=== PATIENT | male | born 1985 | race Hispanic/Latino ===

== ENCOUNTER 2017-10-20 23:47 | Emergency (ER) | payer MEDICAID ==
[2017-10-20 23:57] VITALS: BP 109/74; PULSE 77; RESP 18; TEMP 98.4; O2SAT 97
[2017-10-21] MEDS ORDERED: Sodium Chloride 0.9% 1,000 ML IV STA (00:17)
[2017-10-21] MEDS ORDERED: DiphenhydrAMINE 50 mg/ml Inj IVP STA (00:17)
[2017-10-21] MEDS ORDERED: DiphenhydrAMINE 50 mg/ml Inj ONE (00:36)
--- NOTE | 2017-10-21 01:54 | ED PDOC ---
HPI: Psych/Substance Abuse Time Seen by Provider: 10/21/17 00:10 Chief Complaint (Nursing): Alcohol Ingestion Chief Complaint (Provider): Alcohol Ingestion History Per: EMS History/Exam Limitations: intoxication Onset/Duration Of Symptoms: Hrs (prior to arrival) Current Symptoms Are (Timing): Still Present Modifying Factor(s): Alcohol Additional Complaint(s): Morro Mayo is a 32 year old male with unknown past medical history, who was brought to the ER by EMS for alcohol intoxication, prior to arrival. Patient was severely intoxicated in the back of a taxi, and the oil transport driver called EMS. History and review of systems were unobtainable due to patient's intoxicated state. While in ER pt started to have vomiting PMD: none provided Past Medical History Reviewed: Historical Data, Nursing Documentation, Vital Signs, Unable To Obtain (patient is intoxicated) Vital Signs: Last Vital Signs Temp 98.4 F 10/20/17 23:54 Pulse 77 10/20/17 23:54 Resp 18 10/20/17 23:54 BP 109/74 10/20/17 23:54 Pulse Ox 97 10/20/17 23:54 - Medical History Other PMH: Unknown - Surgical History Other surgeries: Unknown - Family History Family History: States: Unknown Family Hx - Allergies Allergies/Adverse Reactions: Allergies Allergy/AdvReac Type Severity Reaction Status Date / Time Unobtainable Allergy Verified 10/20/17 23:58 Review of Systems Review Of Systems: ROS cannot be obtained secondary to pt's inabilty to answer questions. (patoent is intoxicated) Physical Exam - Reviewed Nursing Documentation Reviewed: Yes Vital Signs Reviewed: Yes - Physical Exam Appears: Negative for: Well (intoxicated, lethargic) Head Exam: Positive for: ATRAUMATIC, NORMOCEPHALIC Skin: Positive for: Warm, Dry, Pallor Eye Exam: Positive for: EOMI, PERRL, Conjunctival injection ENT: Positive for: Pharynx Is (clear) Neck: Positive for: Painless ROM, Supple Cardiovascular/Chest: Positive for: Regular Rate, Rhythm. Negative for: Murmur Respiratory: Positive for: Normal Breath Sounds. Negative for: Accessory Muscle Use, Respiratory Distress Gastrointestinal/Abdominal: Positive for: Soft. Negative for: Tenderness, Mass , Distended, Guarding Back: Positive for: Normal Inspection. Negative for: Decreased ROM Extremity: Positive for: Normal ROM. Negative for: Deformity Lymphatic: Negative for: Adenopathy Neurologic/Psych: Positive for: Other (slurred speech). Negative for: Alert, Oriented, Motor/Sensory Deficits - ECG O2 Sat by Pulse Oximetry: 97 (RA) Pulse Ox Interpretation: Normal Medical Decision Making Medical Decision Making: Time: 00:17 Impression: alcohol intoxication, vomiting Plan: --Alcohol Serum --Benadryl 25 mg IVP --Dextrose IV 1,000 mls/hr --IV Fluids --Reglan 10 mg IV --Glucose, Blood, POC Patient was retching and vomiting in the ER, upon arrival. Labs demonstrate elevated BAL Reeval at 2 and 4 hours in ER, pt sleeping comfortably. 6am Pt awake, oriented, ambulating without difficulty. No signs of withdrawal. Stable for DC. Scribe Attestation: Documented by Tiesha Restrepo acting as a scribe for Ana Guzman MD. Scribe Attestation: All medical record entries made by the Scribe were at my direction and personally dictated by me. I have reviewed the chart and agree that the record accurately reflects my personal performance of the history, physical exam, medical decision making, and the department course for this patient. I have also personally directed, reviewed, and agree with the discharge instructions and disposition. Disposition - Clinical Impression Clinical Impression: Alcohol intoxication - Disposition Disposition: Routine/Home Disposition Time: 06:00 Condition: IMPROVED Additional Instructions: DRINK IN MODERATION OR DON'T DRINK AT ALL Instructions: Alcohol Use - When Is Drinking a Problem? Forms: [employer] (Romansh)
== END 2017-10-21 07:06 | disposition home or self-care (01) ==
LOC: H.ER 23:47
DX: F10.10 Alcohol abuse, uncomplicated (principal)
CPT/HCPCS: 80320; 96361; 96374; 96375; 99281; J1200; J2765; J7040

== ENCOUNTER 2017-11-01 04:17 | Inpatient (IN) | payer MEDICAID, OTHER ==
--- NOTE | 2017-11-01 05:06 | ED PDOC ---
HPI: Psych/Substance Abuse Chief Complaint (Provider): crisis eval History Per: Patient History/Exam Limitations: no limitations Additional Complaint(s): 32 y/o male presents for crisis eval. Patient states he has " a lot of things" going on lately that have been contributing factors. Patient appears intoxicated, admits to drinking "a few beers" tonight. Requesting sunchips. Denies suicidal/homicidal ideations, drug use, acute physical complaints. Compliant with psych meds. <Stephanie Lind - Last Filed: 11/01/17 05:59> <Julio Cesar Jorgensen - Last Filed: 11/01/17 07:50> Time Seen by Provider: 11/01/17 05:00 Chief Complaint (Nursing): Psychiatric Evaluation Past Medical History Reviewed: Historical Data, Nursing Documentation, Vital Signs Vital Signs: Last Vital Signs Temp 98.6 F 11/01/17 04:51 Pulse 73 11/01/17 04:51 Resp 16 11/01/17 04:51 BP Pulse Ox 97 11/01/17 04:51 - Medical History PMH: Anxiety, Bipolar Disorder - Surgical History Surgical History: No Surg Hx - Family History Family History: States: Unknown Family Hx <Stephanie Lind - Last Filed: 11/01/17 05:59> Vital Signs: Last Vital Signs Temp 98.6 F 11/01/17 04:51 Pulse 73 11/01/17 04:51 Resp 16 11/01/17 04:51 BP 121/63 11/01/17 05:34 Pulse Ox 97 11/01/17 06:00 <Julio Cesar Jorgensen - Last Filed: 11/01/17 07:50> - Allergies Allergies/Adverse Reactions: Allergies Allergy/AdvReac Type Severity Reaction Status Date / Time Unobtainable Allergy Verified 10/20/17 23:58 Review of Systems ROS Statement: Except As Marked, All Systems Reviewed And Found Negative Psych: Positive for: Depression <Stephanie Lind - Last Filed: 11/01/17 05:59> Physical Exam - Reviewed Nursing Documentation Reviewed: Yes Vital Signs Reviewed: Yes - Physical Exam Appears: Positive for: Well, Non-toxic, No Acute Distress Head Exam: Positive for: ATRAUMATIC, NORMAL INSPECTION, NORMOCEPHALIC Skin: Positive for: Normal Color Eye Exam: Positive for: Normal appearance ENT: Positive for: Normal ENT Inspection Cardiovascular/Chest: Positive for: Regular Rate, Rhythm Respiratory: Positive for: Normal Breath Sounds Gastrointestinal/Abdominal: Positive for: Normal Exam Back: Positive for: Normal Inspection Extremity: Positive for: Normal ROM Neurologic/Psych: Positive for: Alert, Oriented <Stephanie Lind - Last Filed: 11/01/17 05:59> - ECG O2 Sat by Pulse Oximetry: 97 <Stephanie Lind - Last Filed: 11/01/17 05:59> - Laboratory Results Result Diagrams: 11/01/17 05:31 11/01/17 05:31 <Julio Cesar Jorgensen - Last Filed: 11/01/17 07:50> Medical Decision Making Medical Decision Making: Patient to be signed out to Dr. Alcazar pending crisis evaluation. <Julio Cesar Jorgensen - Last Filed: 11/01/17 07:50> Disposition - Disposition Disposition Time: 06:00 <Stephanie Lind - Last Filed: 11/01/17 05:59> - Patient ED Disposition Is Patient to be Admitted: Transfer of Care - Disposition Patient Signed Over To: Winston Alcazar <Julio Cesar Jorgensen - Last Filed: 11/01/17 07:50> - Clinical Impression Clinical Impression: Depression - Disposition Condition: STABLE
[2017-11-01 06:05] LABS: BASO # 0.1 K/uL (0.0-0.2); BASO % 1.1 % (0.0-2.0); EOS # 0.2 K/uL (0.0-0.7); EOS % 3.6 % (0.0-4.0); HEMOGLOBIN 13.6 g/dL (12.0-18.0); LYMPH # 1.6 K/uL (1.0-4.3); LYMPH % 31.9 % (20.0-40.0); MEAN CORPUSCULAR HEMOGLOBIN 32.4 pg (27.0-31.0); MEAN CORPUSCULAR HGB CONC 34.1 g/dL (33.0-37.0); MEAN PLATELET VOLUME 7.5 fl (7.2-11.7); MONO # 0.6 K/uL (0.0-0.8); MONO % 12.7 % (0.0-10.0); NEUT # 2.5 K/uL (1.8-7.0); NEUT % 50.7 % (50.0-75.0); NRBC % 0.1 % (0.0-0.0); RBC 4.2 Mil/uL (4.40-5.90); RED CELL DISTRIBUTION WIDTH 13.2 % (11.5-14.5); WHITE BLOOD COUNT 4.9 K/uL (4.8-10.8)
[2017-11-01 06:06] LABS: ALB/GLOB RATIO 1.4 (1.0-2.1); ALBUMIN 4.1 g/dL (3.5-5.0); ALT/SGPT 51 U/L (21-72); AST/SGOT 45 U/L (17-59); BLOOD UREA NITROGEN 21 mg/dl (9-20); CALCIUM 9.4 mg/dL (8.4-10.2); GFR AFRICAN-AMERICAN > 60; GFR NON-AFRICAN AMERICAN > 60
[2017-11-01 07:50] LABS: SQUAMOUS EPITHIAL < 1 /hpf (0-5); URINE BILIRUBIN NEGATIVE (NEGATIVE); URINE BLOOD NEGATIVE (NEGATIVE); URINE CLARITY CLEAR (Clear); URINE COLOR YELLOW (YELLOW); URINE GLUCOSE (UA) NEG (Normal); URINE LEUKOCYTE ESTERASE NEG Leu/uL (Negative); URINE PROTEIN NEGATIVE (NEGATIVE); URINE UROBILINOGEN 0.2-1.0 mg/dL (0.2-1.0)
[2017-11-01 08:02] VITALS: O2SAT 98
[2017-11-01 08:02] LABS: BARBITURATES, UR NEGATIVE (NEGATIVE); BENZODIAZEPINES, UR NEGATIVE (NEGATIVE); OPIATES, UR NEGATIVE (NEGATIVE); PHENCYCLIDINE, UR NEGATIVE (NEGATIVE)
--- NOTE | 2017-11-01 08:04 | ED PDOC ---
- Laboratory Results Result Diagrams: 11/02/17 07:41 11/02/17 07:41 - ECG O2 Sat by Pulse Oximetry: 98 Medical Decision Making Medical Decision Making: Patient signed out to me by Dr. Jorgensen pending crisis evaluation. 8:30 Patient being admitted for bipolar disorder to Dr. Burroughs. Scribe Attestation: Documented by Yaneth Barron acting as a scribe Winston Alcazar MD. Scribtanja Attestation: All medical record entries made by the Scribe were at my direction and personally dictated by me. I have reviewed the chart and agree that the record accurately reflects my personal performance of the history, physical exam, medical decision making, and the department course for this patient. I have also personally directed, reviewed, and agree with the discharge instructions and disposition. Disposition - Clinical Impression Clinical Impression: Depression - POA Present On Arrival: None - Disposition Disposition: Admitted as In-Patient Disposition Time: 08:00 Condition: STABLE
[2017-11-01] MEDS ORDERED: DiphenhydrAMINE 50 mg/ml Inj IM PRN (13:17)
[2017-11-01] MEDS ORDERED: Magnesium Hydroxide Susp 30 ml UD PO PRN (13:17)
[2017-11-01] MEDS ORDERED: Alum-Mag Hydrox-Simethicone Susp (30 mL) PO PRN (13:17)
--- NOTE | 2017-11-01 15:24 | PCM.PSYCH ---
Initial Psychiatric Evaluation - Initial Psychiatric Evaluation Type of Admission: Voluntary Legal Status: Capacity Chief Complaint (in patient's own words): I broke up with my girl friend and it hurts Patient's Reaction to Hospitalization: pt requested help History of Present Illness and Precipitating Events: pt is 32 ys old male with previous diagnosis of bipolar disorder, at least four previous inpatient hospitalizations for manic episodes. pt recently broke up with his girl friend became increasingly depressed, pt was non compliant with his medications, started to have poor sleep only two hours a day, pt also started using alcohol and cannabis, pt became increasingly manic for past few days since last monday, left the house and started wandering on the streets in [facility] pt started experiencing suicidal ideations and presented to ER seeking help on the unit pt presenting with severe anxiety, depressed mood with passive suicidal ideations, no active plan or intent on the unit, increased energy and irritability, pt denied homicidal ideations, denied command hallucinations Current Medications: Active Medications Generic Name Dose Route Start Last Admin Trade Name Freq PRN Reason Stop Dose Admin Acetaminophen 650 mg 11/01/17 13:17 Tylenol 325mg Tab PO Q4 PRN Pain, moderate (4-7) Al Hydrox/Mg Hydrox/Simethicone 30 ml 11/01/17 13:17 Maalox Plus 30 Ml PO Q4 PRN Dyspepsia Diphenhydramine HCl 50 mg 11/01/17 13:17 Benadryl IM Q6 PRN Extrapyramidal S/S Unable PO Diphenhydramine HCl 50 mg 11/01/17 13:17 Benadryl PO Q6 PRN Extrapyramidal Symptoms Haloperidol 5 mg 11/01/17 13:17 Haldol PO Q4 PRN Agitation Haloperidol Lactate 5 mg 11/01/17 13:17 Haldol IM Q4 PRN Agitation, Unable to Take PO Lorazepam 2 mg 11/01/17 13:17 Ativan IM Q4 PRN Anxiety/Agitation,Unable PO Lorazepam 2 mg 11/01/17 13:17 Ativan PO Q4 PRN Anxiety/Agitation Magnesium Hydroxide 30 ml 11/01/17 13:17 Milk Of Magnesia PO HS PRN Constipation Oxcarbazepine 150 mg 11/01/17 17:00 Trileptal PO BID LEIGH Risperidone 1 mg 11/01/17 17:00 Risperdal M-Tab PO BID LEIGH Past Psychiatric History - Past Psychiatric History Explanation of prior treatment: pt diagnosed with bipolar disorder since age 22, hx of about 5 involuntary hospitalizations due to manic episode, [facility], and [facility] History of ETOH/Drug Use: alcohol and cannabis abuse Pertinent Medical Hx (Current Medical&Sleep Prob, Allergies): Allergies Allergy/AdvReac Type Severity Reaction Status Date / Time Unobtainable Allergy Verified 10/20/17 23:58 Risperidone [Risperdal] 4 mg PO HS 11/01/17 buPROPion XL [Wellbutrin XL] 300 mg PO DAILY 11/01/17 Mental Status Examination - Personal Presentation Personal Presentation: Looks stated age - Affect Affect: Constricted, Depressed Additional comments: anxious, irritable - Motor Activity Motor Activity: Psychomotor Agitation - Reliability in Providing Information Reliability in Providing Information: Poor, due to altered mood - Speech Speech: Relevant - Mood Mood: Depressed, Anxious - Formal Thought Process Formal Thought Process: Circumstantial - Hallucinations/Delusions Additional comments: pt denied perceptual disturbances, non elicited - Obsessions/Compulsions Obsessions: No Compulsions: No - Cognitive Functions Orientation: Person, Place Sensorium: Alert Attention/Concentration: Easily distracted Judgement: Imparied, as evidence by: Poor judgement - Risk Risk: Suicidal, Diminished functioning - Strength & Assets Inventory Strength & Assets Inventory: Family support - Limitations Additional comments: unemployed, poor compliance DSM 5 DX - DSM 5 DSM 5 Diagnosis: bipolar I disorder MRE mixed severe without psychotic features - Recommended/Plan of Treatment Treatment Recommendations and Plan of Treatment: start risperidone 1mg bid trileptal 150mg bid with plan to uptitrate monitor for psychopharmacological effect and side effect profile
--- NOTE | 2017-11-01 15:56 | PCM.BM ---
<Lorenza Clarke - Last Filed: 11/01/17 15:54> Treatment Plan Problems - Problems identified on initial assessmt Feelings of Worthlessness Date Initiated: 11/01/17 Time Initiated: 15:55 Assessment reference: NA Status: Active Treatment assets and liabiliti Patient Assests: cooperative, insightful, cognitively intact Patient Liabilities: financial problems, relationship conflicts - Milieu Protocol Maintain good personal hygiene: daily Encourage regular showers, every shift Remind patient to perform daily oral care, every shift Assist patient to perform ADL's Conduct patient checks and document Observation sheet: Q15 minutes Maintain personal safety: every shift Educate patient to report safety concerns to staff, every shift Monitor environment for contraband/sharps Medication safety: Monitor for expected outcome, potential side effects: every shift, Assess barriers to learning: every shift, Assess readiness for medication education: every shift Milieu Narrative: start risperidone 1mg bid trileptal 150mg bid with plan to uptitrate monitor for psychopharmacological effect and side effect profile Discharge/Continuing Care - Treatment Team Participation Patient/Family/SO Statement: start risperidone 1mg bid trileptal 150mg bid with plan to uptitrate monitor for psychopharmacological effect and side effect profile <Ricardo Duenas - Last Filed: 11/05/17 11:04> Family Contact Family involvement: Family/SO is involved Family contact: Patient agrees to contact, Family has been contacted by patient , Telephone contact initiated by staff Family contact name: Phyllis (mother [phone]) Family contacted how many times per week?: 3 Family contact comment: [employer] Work[employer] spoke to pt's mother, Phyllis ([phone]) to gather collateral and discuss with her proposed course of treatment and length of stay. Pt's mother reported that pt lived in [facility] with her and his father from 1998 to 2001 and returned to the [place] in 2001 to attend high school. Pt's mother reported that pt was always a little depressed after he returned to the [facility] and became increasingly isolated. pt's mother reported he attended two years of college at [employer] in [place] studying economics prior to his first manic episode. Pt's mother reported that pt's prior manic episodes present with excessive spending, sleeplessness, and racing, bizarre thoughts and speech. Pt's mother reported pt experienced periods of depression over the years where pt was isolative and anhedonic. Pt's mother believes this current episode may have began in August whenm pt disappeared in [facility] for three days and when he returned home he had lost his wallet and cell phone. Mother reported that pt is very private and can easily hide his symptoms as he is very intelligent. - Outside Agency Agency 1 Care involvment: Following patient during stay, Information-sharing Agency contact name: GORDY Leon - Therapist Maureen Agency contact number: - Goals for Treatment Patient goals for treatment: Pt is currently experiencing a manic episode with psychotic features and at this time has poor insight into his condition. Pt reported that he feels sad and anxious and would like thezse symptoms improved. Patient's family/SO goals for treatment: Pt's mother would like pt to be stabilized with better recommendations for outpatient treatment. Discharge/Continuing Care - Education Needs Education Needs: Family Medication, Family Diagnosis/Disease Process, Family Coping Skills, Family Aftercare Safety Plan, Patient Medication, Patient Diagnosis/Disease Process, Patient Coping Skills, Patient Aftercare Safety Plan - Discharge Discharge Criteria: Tolerates medication w/o severe side effects, Free of paranoid thoughts, Free of agitation, Normal sleep pattern, Ability to care for self, Reduction of target symptoms Discharge to:: Home, With Family - Additional Comments 11/05/17 11:10 Pt presented as confused and internally preoccupied. Pt continues to experience poor insight into his condition and reports only depression and anxiety as symptoms. - Treatment Team Participation Discussed with Family/SO: Yes Was Patient/Family/SO present at Treatment Team Meeting: Yes <Lambert Juárez - Last Filed: 11/15/17 09:40> - Diagnosis (1) Depression Status: Acute Interventions: psychotherapy, pharmacotherapy 11/15/17 09:40
[2017-11-01] MEDS ORDERED: Divalproex 500 mg DR(BID formulation) PO SCH (17:00)
[2017-11-01] MEDS: Risperidone M tab 1 MG PO SCH (18:29)
[2017-11-01] MEDS ORDERED: Divalproex 250 mg DR(BID formulation) PO SCH (22:00)
[2017-11-02 07:56] LABS: BASO % 0.8 % (0.0-2.0); EOS # 0.2 K/uL (0.0-0.7); HEMOGLOBIN 13.8 g/dL (12.0-18.0); LYMPH # 1.4 K/uL (1.0-4.3); LYMPH % 36.1 % (20.0-40.0); MEAN CELL VOLUME 94.9 fl (80.0-94.0); MEAN CORPUSCULAR HEMOGLOBIN 31.8 pg (27.0-31.0); MEAN CORPUSCULAR HGB CONC 33.5 g/dL (33.0-37.0); MEAN PLATELET VOLUME 7.4 fl (7.2-11.7); MONO # 0.4 K/uL (0.0-0.8); MONO % 10.9 % (0.0-10.0); NEUT # 1.9 K/uL (1.8-7.0); NEUT % 48.2 % (50.0-75.0); NRBC % 0.1 % (0.0-0.0); RBC 4.33 Mil/uL (4.40-5.90); RED CELL DISTRIBUTION WIDTH 13.3 % (11.5-14.5); WHITE BLOOD COUNT 3.9 K/uL (4.8-10.8)
[2017-11-02 08:22] LABS: ALB/GLOB RATIO 1.4 (1.0-2.1); ALBUMIN 3.9 g/dL (3.5-5.0); ALT/SGPT 42 U/L (21-72); AST/SGOT 33 U/L (17-59); BLOOD UREA NITROGEN 14 mg/dl (9-20); CALCIUM 9.1 mg/dL (8.4-10.2); GFR AFRICAN-AMERICAN > 60; GFR NON-AFRICAN AMERICAN > 60; HDL CHOLESTEROL 44 MG/DL (30-70)
[2017-11-02 08:28] LABS: LDL CHOLESTEROL 97 mg/dL (0-129)
[2017-11-02 08:30] LABS: T4 7.11 ug/dl (5.5-11.0)
[2017-11-02] MEDS ORDERED: Divalproex 500 mg DR(BID formulation) PO SCH (09:00)
[2017-11-02] MEDS: Risperidone M tab 1 MG PO SCH (10:16)
--- NOTE | 2017-11-02 14:53 | PCM.PYCHPN ---
Psychiatric Progress Note - Psychiatric Progress Note Patient seen today, length of contact: pt evaluated discussed with team chart reviewed Patient Chief Complaint: I stopped taking my medicine and I became manic Problems Identified/Issues Discussed: pt on evaluation, more cooperative , less guarded, more cooperative with the interview, pt reported he stopped taking his medicine, due to breaking up with his girl friend, reports feeling depressed and down, reported feeling paranoid, as if he is being followed by somebody discussed with pt that this could be effect of cannabis in addition to his illness discussed increasing dose of risperidone with possible starting risperidone consta no reported suicidal or homicidal ideations, no reported command hallucinations , no reported side effects of medications Medical Problems: pt diagnosed with bipolar disorder since age 22, hx of about 5 involuntary hospitalizations due to manic episode, [facility] DSM 5 Symptoms Update: hilario najera MRE manic severe Medication Change: Yes (increase risperidone) Medical Record Reviewed: Yes Mental Status Examination - Cognitive Function Orientation: Person, Place Attention: WNL Concentration: WNL Association: WNL Decription of patient's judgement and insights: fair insight , poor judgment - Mood Mood: Depressed, Anxious - Affect Affect: Constricted, Depressed - Speech Speech: Appropriate - Formal Thought Process Formal Thought Process: Paranoia, Circumstantial - Suicidal Ideation Suicidal Ideation: No - Homicidal Ideation Homicidal Ideation: No Goal/Treatment Plan - Goal/Treatment Plan Need for Continued Stay: Severe depression anxiety, Discharge may exacerbated symptoms Progress Toward Problem(s) and Goals/Treatment Plan: increase risperidone 1mg daily and 2mg qhs discontinue trileptal monitor for psychopharmacological effect and side effect profile
--- NOTE | 2017-11-02 19:49 | CP.PCM.CON ---
History of Present Illness - History of Present Illness History of Present Illness: CC: Anxiety This is a 32 year old male who presented to the ED with anxiety and hx of bipolar disorder and was admitted to inpatient psych [facility] for further tx. He has no complaints. Review of Systems - Review of Systems Review of Systems: A 12 point review of systems was conducted and found to be negative other than what was mentioned in the HPI. Past Patient History - Infectious Disease Hx of Infectious Diseases: None - Past Social History Smoking Status: Heavy Smoker > 10 Cigarettes Daily - CARDIAC Hx Cardiac Disorders: No - PULMONARY Hx Asthma: Yes Hx Tuberculosis: No - NEUROLOGICAL HX Cerebrovascular Accident: No Hx Seizures: No - HEENT Hx HEENT Problems: No - RENAL Hx Chronic Kidney Disease: No - ENDOCRINE/METABOLIC Hx Endocrine Disorders: No - HEMATOLOGICAL/ONCOLOGICAL Hx Cancer: No Hx Human Immunodeficiency Virus (HIV): No - INTEGUMENTARY Hx Dermatological Problems: No - MUSCULOSKELETAL/RHEUMATOLOGICAL Hx Musculoskeletal Disorders: No - GASTROINTESTINAL Hx Gastrointestinal Disorders: No - GENITOURINARY/GYNECOLOGICAL Hx Sexually Transmitted Disorders: No - PSYCHIATRIC Hx Substance Use: No - SURGICAL HISTORY Hx Surgeries: Yes Hx Musculoskeletal Surgery: Yes (r hand) - ANESTHESIA Hx Anesthesia: Yes Meds Allergies/Adverse Reactions: Allergies Allergy/AdvReac Type Severity Reaction Status Date / Time divalproex sodium Allergy Severe RASH Verified 11/01/17 15:37 [From Depakote] lithium Allergy Severe RASH Verified 11/01/17 15:37 - Medications Medications: Current Medications Acetaminophen (Tylenol 325mg Tab) 650 mg PO Q4 PRN PRN Reason: Pain, moderate (4-7) Al Hydrox/Mg Hydrox/Simethicone (Maalox Plus 30 Ml) 30 ml PO Q4 PRN PRN Reason: Dyspepsia Diphenhydramine HCl (Benadryl) 50 mg IM Q6 PRN PRN Reason: Extrapyramidal S/S Unable PO Diphenhydramine HCl (Benadryl) 50 mg PO Q6 PRN PRN Reason: Extrapyramidal Symptoms Diphenhydramine HCl (Benadryl) 50 mg PO HS PRN PRN Reason: Sleep Haloperidol (Haldol) 5 mg PO Q4 PRN PRN Reason: Agitation Haloperidol Lactate (Haldol) 5 mg IM Q4 PRN PRN Reason: Agitation, Unable to Take PO Lorazepam (Ativan) 2 mg IM Q4 PRN PRN Reason: Anxiety/Agitation,Unable PO Lorazepam (Ativan) 2 mg PO Q4 PRN PRN Reason: Anxiety/Agitation Magnesium Hydroxide (Milk Of Magnesia) 30 ml PO HS PRN PRN Reason: Constipation Nicotine (Nicoderm Cq) 1 patch TD DAILY LEIGH Risperidone (Risperdal M-Tab) 1 mg PO DAILY LEIGH Risperidone (Risperdal M-Tab) 2 mg PO HS LEIGH Physical Exam - Additional Findings Additional findings: Physical exam: Constitutional- cooperative, awake, alert Head- NCAT, PERRL Eye- PERRL, EOMI ENT- normal exam, MMM. Neck- normal inspection, supple, no JVD Respiratory- CTAB, no wheezes rales rhonchi Cardiovascular- RRR, +S1, +S2 no MRG GI/Abdominal- normal bowel sounds, soft, no mass, no hsm Skin- warm, dry Extremities Exam- normal capillary refill, normal inspection Neurological Exam- alert, awake, oriented Psych- labile mood, anxious. Results - Vital Signs Recent Vital Signs: Last Vital Signs Temp 96.3 F L 11/02/17 09:11 Pulse 68 11/02/17 09:11 Resp 18 11/02/17 09:11 BP 102/59 L 11/02/17 09:11 Pulse Ox 98 11/01/17 12:49 - Labs Result Diagrams: 11/02/17 07:41 11/02/17 07:41 Labs: Laboratory Results - last 24 hr 11/02/17 11/02/17 11/02/17 07:41 07:41 07:41 WBC 3.9 L RBC 4.33 L Hgb 13.8 Hct 41.1 MCV 94.9 H MCH 31.8 H MCHC 33.5 RDW 13.3 Plt Count 217 MPV 7.4 Neut % (Auto) 48.2 L Lymph % (Auto) 36.1 Henry % (Auto) 10.9 H Eos % (Auto) 4.0 Baso % (Auto) 0.8 Neut # (Auto) 1.9 Lymph # (Auto) 1.4 Henry # (Auto) 0.4 Eos # (Auto) 0.2 Baso # (Auto) 0.0 Sodium 140 Potassium 4.6 Chloride 102 Carbon Dioxide 26 Anion Gap 17 BUN 14 Creatinine 0.7 L Est GFR ( Amer) > 60 Est GFR (Non-Af Amer) > 60 Random Glucose 91 Calcium 9.1 Total Bilirubin 0.8 AST 33 ALT 42 Alkaline Phosphatase 53 Total Protein 6.8 Albumin 3.9 Globulin 2.8 Albumin/Globulin Ratio 1.4 Triglycerides 74 Cholesterol 155 LDL Cholesterol Direct 97 HDL Cholesterol 44 Thyroxine (T4) 7.11 TSH 3rd Generation 3.58 RPR Nonreactive Assessment & Plan - Assessment and Plan (Free Text) Plan: ASSESSMENT/PLAN 32 yo male admitted to psych for anxiety and bipolar disorder Severe depression - management as per psych Anxiety - Management as per psych
[2017-11-02] MEDS ORDERED: Risperidone M TAB 2 MG PO SCH (22:00)
[2017-11-03] MEDS: Risperidone M tab 1 MG PO SCH ×2 (08:38→21:15)
--- NOTE | 2017-11-03 15:38 | PCM.PYCHPN ---
Psychiatric Progress Note - Psychiatric Progress Note Patient seen today, length of contact: pt evaluated discussed with team chart reviewed Patient Chief Complaint: I am angry because I could not smoke Problems Identified/Issues Discussed: pt evaluated with treatment team, appears guarded , paranoid with thought blocking, pt also presenting with irritable affect, relates that to inability to smoke, motivational therapy provided, discussed with pt negative effects of cannabis on his current mental health also discussed increasing dose of risperidone and adding neurontin as a mood stabilizer , encouraged medication compliance no reported suicidal or homicidal ideations, no reported command hallucinations , no reported side effects of medications Medical Problems: pt diagnosed with bipolar disorder since age 22, hx of about 5 involuntary hospitalizations due to manic episode, [facility] DSM 5 Symptoms Update: bipolar I disorder mixed with psychotic features Medication Change: Yes (increase risperidone) Medical Record Reviewed: Yes Mental Status Examination - Cognitive Function Orientation: Person, Place Attention: WNL Concentration: WNL Association: WNL Decription of patient's judgement and insights: fair insight , poor judgment - Mood Mood: Depressed, Anxious - Affect Affect: Constricted, Depressed Additional comments: irritable - Speech Speech: Appropriate - Formal Thought Process Formal Thought Process: Paranoia, Circumstantial - Suicidal Ideation Suicidal Ideation: No - Homicidal Ideation Homicidal Ideation: No Goal/Treatment Plan - Goal/Treatment Plan Need for Continued Stay: Severe depression anxiety, Discharge may exacerbated symptoms Progress Toward Problem(s) and Goals/Treatment Plan: increase risperidone 1mg daily and 3mg qhs neurontin 100mg tid with plan to uptitrate monitor for psychopharmacological effect and side effect profile
[2017-11-04] MEDS: Risperidone M tab 1 MG PO SCH ×2 (08:15→21:16)
--- NOTE | 2017-11-04 12:50 | PCM.PYCHPN ---
Psychiatric Progress Note - Psychiatric Progress Note Patient seen today, length of contact: pt evaluated discussed with team chart reviewed Patient Chief Complaint: I am all good Problems Identified/Issues Discussed: pt evaluated , continues to be guarded, evasive , under productive speech, reported episodes of irritability and anxious mood related that to craving smoking, pt compliant with medications but with limited insight into illness no reported suicidal or homicidal ideations, no reported command hallucinations , no reported side effects of medications Medical Problems: pt diagnosed with bipolar disorder since age 22, hx of about 5 involuntary hospitalizations due to manic episode, [place], and [facility] DSM 5 Symptoms Update: bipolar I disorder mixed severe with psychotic features Medication Change: Yes (d/c neurontin start trileptal) Medical Record Reviewed: Yes Mental Status Examination - Cognitive Function Orientation: Person, Place Attention: WNL Concentration: WNL Association: WNL Decription of patient's judgement and insights: fair insight , poor judgment - Mood Mood: Depressed, Anxious - Affect Affect: Constricted, Depressed - Speech Speech: Appropriate - Formal Thought Process Formal Thought Process: Paranoia, Circumstantial - Suicidal Ideation Suicidal Ideation: No - Homicidal Ideation Homicidal Ideation: No Goal/Treatment Plan - Goal/Treatment Plan Need for Continued Stay: Severe depression anxiety, Discharge may exacerbated symptoms Progress Toward Problem(s) and Goals/Treatment Plan: risperidone 1mg daily and 3mg qhs d/c neurontin start trileptal 150 mg bid with plan to uptitrate monitor for psychopharmacological effect and side effect profile
[2017-11-05] MEDS: Risperidone M tab 1 MG PO SCH ×2 (08:56→21:26)
--- NOTE | 2017-11-05 15:02 | PCM.PYCHPN ---
Psychiatric Progress Note - Psychiatric Progress Note Patient seen today, length of contact: pt evaluated discussed with team chart reviewed Patient Chief Complaint: I had ahard time with the break up with my girlfriend Problems Identified/Issues Discussed: pt evaluated , today less guarded, better communication with the commercial loan underwriter, stated that his manic episode was precipitated by the break up with his girl friend discussed with pt importance of continuing therapy on discharge also discussed increasing dose of trileptal while monitoring any possible rash pt compliant with medications , declined being started on risperidone consta no reported suicidal or homicidal ideations, no reported command hallucinations , no reported side effects of medications Medical Problems: pt diagnosed with bipolar disorder since age 22, hx of about 5 involuntary hospitalizations due to manic episode, [facility] DSM 5 Symptoms Update: bipolar 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 use disorder Medication Change: Yes (increase trileptal) Medical Record Reviewed: Yes Mental Status Examination - Cognitive Function Orientation: Person, Place Attention: WNL Concentration: WNL Association: WNL Decription of patient's judgement and insights: fair insight , poor judgment - Mood Mood: Depressed, Anxious - Affect Affect: Constricted, Depressed - Speech Speech: Appropriate - Formal Thought Process Formal Thought Process: Circumstantial - Suicidal Ideation Suicidal Ideation: No - Homicidal Ideation Homicidal Ideation: No Goal/Treatment Plan - Goal/Treatment Plan Need for Continued Stay: Severe depression anxiety, Discharge may exacerbated symptoms Progress Toward Problem(s) and Goals/Treatment Plan: risperidone 1mg daily and 3mg qhs increase trileptal 300 mg bid with plan to uptitrate monitor for psychopharmacological effect and side effect profile Estimated Date of D/C: 11/10/17
[2017-11-06] MEDS: Risperidone M tab 1 MG PO SCH ×2 (09:02→21:09)
--- NOTE | 2017-11-06 15:24 | PCM.PYCHPN ---
Psychiatric Progress Note - Psychiatric Progress Note Patient seen today, length of contact: pt evaluated discussed with team chart reviewed Patient Chief Complaint: I am looking forward to a new start Problems Identified/Issues Discussed: pt evaluated , less guarded, thought process more goal directed, reported feeling less irritable, pt compliant with medications , declined being started on risperidone consta pt also has been refusing trileptal, discussed with him importance of continuing on a mood stabilizer , also discusse importance of compliance with therapy on discharge no reported suicidal or homicidal ideations, no reported command hallucinations , no reported side effects of medications Medical Problems: pt diagnosed with bipolar disorder since age 22, hx of about 5 involuntary hospitalizations due to manic episode, [place], and [facility] DSM 5 Symptoms Update: bipolar I disorder MRE mixed severe with psychotic features Medication Change: No Medical Record Reviewed: Yes Mental Status Examination - Cognitive Function Orientation: Person, Place Attention: WNL Concentration: WNL Association: WNL Decription of patient's judgement and insights: fair insight , poor judgment - Mood Mood: Depressed, Anxious - Affect Affect: Constricted, Depressed - Speech Speech: Appropriate - Formal Thought Process Formal Thought Process: Circumstantial Psychotic Thoughts and Behaviors: pt less paranoid and less guarded denied perceptual disturbances - Suicidal Ideation Suicidal Ideation: No - Homicidal Ideation Homicidal Ideation: No Goal/Treatment Plan - Goal/Treatment Plan Need for Continued Stay: Severe depression anxiety, Discharge may exacerbated symptoms Progress Toward Problem(s) and Goals/Treatment Plan: risperidone 1mg daily and 3mg qhs trileptal 300 mg bid , encourage risk and compliance analytics director for psychopharmacological effect and side effect profile Estimated Date of D/C: 11/10/17
[2017-11-07] MEDS: Risperidone M tab 1 MG PO SCH (08:30)
[2017-11-07] MEDS: Risperidone M TAB 2 MG PO SCH (21:24)
--- NOTE | 2017-11-07 22:09 | PCM.PYCHPN ---
Psychiatric Progress Note - Psychiatric Progress Note Patient seen today, length of contact: pt evaluated discussed with team chart reviewed Patient Chief Complaint: I want to leave soon Problems Identified/Issues Discussed: pt evaluated , l guarded, underproductive speech, limited insight , reported by social human services assistants to continue to have disorganized thought process during group, with grandiose delusions , discussed with pt increasing the dose of risperidone , pt denied any current suicidal or homicidal ideations, no reported command hallucinations , no reported side effects of medications Medical Problems: pt diagnosed with bipolar disorder since age 22, hx of about 5 involuntary hospitalizations due to manic episode, [place], and [facility] DSM 5 Symptoms Update: bipolar diosrder MRE mixed severe with psychotic features Medication Change: Yes (increase rispreridone) Medical Record Reviewed: Yes Mental Status Examination - Cognitive Function Orientation: Person, Place Attention: WNL Concentration: WNL Association: WNL Decription of patient's judgement and insights: fair insight , poor judgment - Mood Mood: Depressed, Anxious - Affect Affect: Constricted, Depressed - Speech Speech: Appropriate - Formal Thought Process Formal Thought Process: Circumstantial Psychotic Thoughts and Behaviors: pt less paranoid and less guarded denied perceptual disturbances - Suicidal Ideation Suicidal Ideation: No - Homicidal Ideation Homicidal Ideation: No Goal/Treatment Plan - Goal/Treatment Plan Need for Continued Stay: Severe depression anxiety, Discharge may exacerbated symptoms Progress Toward Problem(s) and Goals/Treatment Plan: risperidone 1mg daily and 4mg qhs trileptal 300 mg bid , encourage environmental compliance engineer for psychopharmacological effect and side effect profile Estimated Date of D/C: 11/10/17
[2017-11-08] MEDS: Risperidone M tab 1 MG PO SCH (08:47)
--- NOTE | 2017-11-08 14:53 | PCM.PYCHPN ---
Psychiatric Progress Note - Psychiatric Progress Note Patient seen today, length of contact: pt evaluated discussed with team chart reviewed Patient Chief Complaint: I amwilling to start over with my future Problems Identified/Issues Discussed: pt evaluated , continues to be guarded. superficialy cooperative poor eye contact, appears at time internally preoccupied, in group today, pt had delusional thought process stating he had out of body experiences pt continues to minimize his symptoms and has no insight into the effect of cannabis on his current mental health, pt refusing trileptal only consenting for risperidone , discussed increasing dose gradually pt denied suicidal or homicidal ideations, no reported command hallucinations , no reported side effects of medications Medical Problems: pt diagnosed with bipolar disorder since age 22, hx of about 5 involuntary hospitalizations due to manic episode, [place], and [facility] DSM 5 Symptoms Update: 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 Medication Change: Yes (increase rispreridone) Medical Record Reviewed: Yes Mental Status Examination - Cognitive Function Orientation: Person, Place Attention: WNL Concentration: WNL Association: WNL Decription of patient's judgement and insights: fair insight , poor judgment - Mood Mood: Depressed, Anxious - Affect Affect: Constricted, Depressed - Speech Speech: Appropriate - Formal Thought Process Formal Thought Process: Circumstantial Psychotic Thoughts and Behaviors: pt less paranoid and less guarded denied perceptual disturbances - Suicidal Ideation Suicidal Ideation: No - Homicidal Ideation Homicidal Ideation: No Goal/Treatment Plan - Goal/Treatment Plan Need for Continued Stay: Severe depression anxiety, Discharge may exacerbated symptoms Progress Toward Problem(s) and Goals/Treatment Plan: risperidone 2mg daily and 4mg qhs discontinue trileptal , encourage compliance motivational and group therapy monitor for psychopharmacological effect and side effect profile Estimated Date of D/C: 11/10/17
[2017-11-08] MEDS: Risperidone M TAB 2 MG PO SCH (22:07)
[2017-11-09] MEDS: Risperidone M TAB 2 MG PO SCH ×2 (09:13→21:21)
--- NOTE | 2017-11-09 18:34 | PCM.PYCHPN ---
Psychiatric Progress Note - Psychiatric Progress Note Patient seen today, length of contact: pt evaluated discussed with team chart reviewed Patient Chief Complaint: I need to get out of here I think you are tricking me Problems Identified/Issues Discussed: pt evaluated , continues to be . superficialy cooperative with partial poor eye contact, pt requesting to be discharged and presenting with delusions of persecution toward sql report writer and staff members pt continues to refuse any mood stabilizer and insisting the only medication he would take is risperidone continues to minimize his symptoms and has no insight into the effect of cannabis on his current mental health, discussed with pt the recent increase in risperidone to 6mg, also discussed starting risperidone consta to ensure compliance but pt declined pt denied suicidal or homicidal ideations, no reported command hallucinations , no reported side effects of medications Medical Problems: pt diagnosed with bipolar disorder since age 22, hx of about 5 involuntary hospitalizations due to manic episode, [place], and [facility] DSM 5 Symptoms Update: bipolar disorder mixed severe with psychotic features Medication Change: No (increase rispreridone) Medical Record Reviewed: Yes Mental Status Examination - Cognitive Function Orientation: Person, Place Attention: WNL Concentration: Poor Association: WNL Decription of patient's judgement and insights: fair insight , poor judgment - Mood Mood: Depressed, Anxious - Affect Affect: Constricted, Depressed - Speech Speech: Appropriate - Formal Thought Process Formal Thought Process: Paranoia, Circumstantial Psychotic Thoughts and Behaviors: pt presenting with delusions of persecution, denied command hallucinations - Suicidal Ideation Suicidal Ideation: No - Homicidal Ideation Homicidal Ideation: No Goal/Treatment Plan - Goal/Treatment Plan Need for Continued Stay: Severe depression anxiety, Discharge may exacerbated symptoms Progress Toward Problem(s) and Goals/Treatment Plan: risperidone 2mg daily and 4mg qhs motivational and group therapy monitor for psychopharmacological effect and side effect profile Estimated Date of D/C: 11/10/17
[2017-11-10] MEDS: Risperidone M TAB 2 MG PO SCH ×2 (09:46→21:04)
--- NOTE | 2017-11-10 15:10 | PCM.PYCHPN ---
Psychiatric Progress Note - Psychiatric Progress Note Patient seen today, length of contact: pt evaluated discussed with team chart reviewed Patient Chief Complaint: I will not go to partial program, maybe when I leave here I could travel around and forget about being bipolar Problems Identified/Issues Discussed: pt evaluated , together with the treatment team, pt continues to be hypomanic, irritable and angry, talking about the bipolar diagnosis as a life sentence and now he needs to be on disability as this illness is a life sentence, pt tearful talking about limited job opportunities because of his illness, thought process drifting , circumstantial and tangential started to talk about the goverment and politics, patient refusing any referral to partial hospital on discharge also refusing to be on risperidone consta, when discussing the after plan he laughs inappropriately stating he would rather travel around and explore discussed with pt restarting mood stabilizer and he needed lot of encouragement to agree, and continues to request discharge pt denied suicidal or homicidal ideations, no reported command hallucinations , no reported side effects of medications Medical Problems: pt diagnosed with bipolar disorder since age 22, hx of about [facility] involuntary [facility] manic episode, [facility] [place], and [facility] DSM 5 Symptoms Update: bipolar I disorder mixed severe with psychotic features Medication Change: Yes (start trileptal 300mg bid) Medical Record Reviewed: Yes Mental Status Examination - Cognitive Function Orientation: Person, Place Attention: WNL Concentration: Poor Association: WNL Decription of patient's judgement and insights: fair insight , poor judgment - Mood Mood: Depressed, Anxious Additional comments: labile - Affect Affect: Constricted, Depressed - Speech Speech: Appropriate - Formal Thought Process Formal Thought Process: Paranoia, Circumstantial Psychotic Thoughts and Behaviors: pt presenting with delusions of persecution, denied command hallucinations - Suicidal Ideation Suicidal Ideation: No - Homicidal Ideation Homicidal Ideation: No Goal/Treatment Plan - Goal/Treatment Plan Need for Continued Stay: Severe depression anxiety, Discharge may exacerbated symptoms Progress Toward Problem(s) and Goals/Treatment Plan: risperidone 2mg daily and 4mg qhs trileptal 300mg bid , encourage compliance motivational and group therapy monitor for psychopharmacological effect and side effect profile Estimated Date of D/C: 11/16/17
--- NOTE | 2017-11-10 17:34 | PCM.BM ---
Treatment Plan Problems - Problems identified on initial assessmt Feelings of Worthlessness Date Initiated: 11/01/17 Time Initiated: 15:55 Assessment reference: NA Status: Active Treatment assets and liabiliti Patient Assests: cooperative, insightful, cognitively intact Patient Liabilities: financial problems, relationship conflicts - Milieu Protocol Maintain good personal hygiene: daily Encourage regular showers, every shift Remind patient to perform daily oral care, every shift Assist patient to perform ADL's Conduct patient checks and document Observation sheet: Q15 minutes Maintain personal safety: every shift Educate patient to report safety concerns to staff, every shift Monitor environment for contraband/sharps Medication safety: Monitor for expected outcome, potential side effects: every shift, Assess barriers to learning: every shift, Assess readiness for medication education: every shift Milieu Narrative: risperidone 2mg daily and 4mg qhs trileptal 300mg bid , encourage compliance motivational and group therapy monitor for psychopharmacological effect and side effect profile Family Contact Family involvement: Family/SO is involved Family contact: Patient agrees to contact, Family has been contacted by patient , Telephone contact initiated by staff Family contact name: Phyllis (mother [phone]) Family contacted how many times per week?: 3 Family contact comment: Project Controls Scheduler spoke to pt's mother, Phyllis ([phone]) to gather collateral and discuss with her proposed course of treatment and length of stay. Pt's mother reported that pt lived in [facility] with her and his father from 1998 to 2001 and returned to the in 2001 to attend high school. Pt's mother reported that pt was always a little depressed after he returned to the [facility] and became increasingly isolated. pt's mother reported he attended two years of college at [employer] in [place] studying economics prior to his first manic episode. Pt's mother reported that pt's prior manic episodes present with excessive spending, sleeplessness, and racing, bizarre thoughts and speech. Pt's mother reported pt experienced periods of depression over the years where pt was isolative and anhedonic. Pt's mother believes this current episode may have began in August whenm pt disappeared in [facility] for three days and when he returned home he had lost his wallet and cell phone. Mother reported that pt is very private and can easily hide his symptoms as he is very intelligent. - Outside Agency Agency 1 Care involvment: Following patient during stay, Information-sharing Agency contact name: GORDY Leon - Therapist Maureen Agency contact number: - Goals for Treatment Patient goals for treatment: Pt is currently experiencing a manic episode with psychotic features and at this time has poor insight into his condition. Pt reported that he feels sad and anxious and would like thezse symptoms improved. Patient's family/SO goals for treatment: Pt's mother would like pt to be stabilized with better recommendations for outpatient treatment. Discharge/Continuing Care - Education Needs Education Needs: Family Medication, Family Diagnosis/Disease Process, Family Coping Skills, Family Aftercare Safety Plan, Patient Medication, Patient Diagnosis/Disease Process, Patient Coping Skills, Patient Aftercare Safety Plan - Discharge Discharge Criteria: Tolerates medication w/o severe side effects, Free of paranoid thoughts, Free of agitation, Normal sleep pattern, Ability to care for self, Reduction of target symptoms Discharge to:: Home, With Family - Additional Comments 11/05/17 11:10 Pt presented as confused and internally preoccupied. Pt continues to experience poor insight into his condition and reports only depression and anxiety as symptoms. - Treatment Team Participation Patient/Family/SO Statement: risperidone 2mg daily and 4mg qhs trileptal 300mg bid , encourage compliance motivational and group therapy monitor for psychopharmacological effect and side effect profile Discussed with Family/SO: Yes Was Patient/Family/SO present at Treatment Team Meeting: Yes Treatment Plan Review - Problem Feelings of Worthlessness Time Initiated: 15:55 - Discharge / Continuing Care Discharge to:: Home, With Family Behavioral Health Services: Intensive Outpatient (Pt presented as paranoid in treatment team and kept looking around. pt signed treatment planned, but reported he did not want to talk in a group. Project Controls Scheduler and Dr. Juárez will meet with pt individually later in the day. )
--- NOTE | 2017-11-11 09:16 | PCM.PYCHPN ---
Psychiatric Progress Note - Psychiatric Progress Note Patient seen today, length of contact: pt evaluated discussed with team chart reviewed Patient Chief Complaint: pt has remained depressed and very irritible and doing better with risperdal but says that trileptal gives him stomach upset and side effects and does not want to take it and has not taken it.pt remains with poor insight. Medication Change: Yes (start neurontin) Medical Record Reviewed: Yes Mental Status Examination - Cognitive Function Orientation: Person, Place Attention: WNL Concentration: Poor Association: WNL - Mood Mood: Depressed, Anxious - Affect Affect: Constricted, Depressed - Speech Speech: Appropriate - Formal Thought Process Formal Thought Process: Paranoia, Circumstantial - Suicidal Ideation Suicidal Ideation: No - Homicidal Ideation Homicidal Ideation: No Goal/Treatment Plan - Goal/Treatment Plan Need for Continued Stay: Severe depression anxiety, Discharge may exacerbated symptoms Progress Toward Problem(s) and Goals/Treatment Plan: will d/c trileptaln and start pt on neurontin 100 mg bid and continue to titrate risperdal as needed Disposition as per dr angela. Estimated Date of D/C: 11/16/17
[2017-11-11] MEDS: Risperidone M TAB 2 MG PO SCH ×2 (09:29→21:05)
[2017-11-12] MEDS: Risperidone M TAB 2 MG PO SCH ×2 (09:12→21:16)
[2017-11-13] MEDS: Risperidone M TAB 2 MG PO SCH ×2 (08:55→21:34)
[2017-11-13 18:43] VITALS: RESP 18
--- NOTE | 2017-11-13 18:52 | PCM.PYCHPN ---
Psychiatric Progress Note - Psychiatric Progress Note Patient seen today, length of contact: pt evaluated discussed with team chart reviewed Patient Chief Complaint: I want to go home today Problems Identified/Issues Discussed: pt evaluated , treatment plan discussed with mother upon pt consent pt focused on discharge, requesting to leave, continues to refuse any mood stabilizer other than neurontin pt however agreed to attend partial program on discharge , reported better mood and feeling calmer, pt less paranoid , seen interacting with other patients denied suicidal or homicidal ideations, no reported command hallucinations , no reported side effects of medications Medical Problems: pt diagnosed with bipolar disorder since age 22, hx of about 5 involuntary hospitalizations due to manic episode, [place] and [facility] DSM 5 Symptoms Update: bipolar 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 use disorder Medication Change: Yes (increase neurontin) Medical Record Reviewed: Yes Mental Status Examination - Cognitive Function Orientation: Person, Place Memory: Intact Attention: WNL Concentration: Poor Association: WNL - Mood Mood: Depressed, Anxious - Affect Affect: Constricted, Depressed - Speech Speech: Appropriate - Formal Thought Process Formal Thought Process: Paranoia, Circumstantial Psychotic Thoughts and Behaviors: pt less paranoid denied perceptual disturbances - Suicidal Ideation Suicidal Ideation: No - Homicidal Ideation Homicidal Ideation: No Goal/Treatment Plan - Goal/Treatment Plan Need for Continued Stay: Severe depression anxiety, Discharge may exacerbated symptoms Progress Toward Problem(s) and Goals/Treatment Plan: risperidone 2mg daily and 4mg qhs increase neurontin 200mg bid motivational and group therapy monitor for psychopharmacological effect and side effect profile Estimated Date of D/C: 11/16/17
[2017-11-14] MEDS: Risperidone M TAB 2 MG PO SCH ×2 (09:00→21:22)
--- NOTE | 2017-11-14 16:35 | PCM.PYCHPN ---
Psychiatric Progress Note - Psychiatric Progress Note Patient seen today, length of contact: pt evaluated discussed with team chart reviewed Patient Chief Complaint: I am ready to start the program Problems Identified/Issues Discussed: pt evaluated , calmer cooperative , seen on unit interacting with other patients, less paranoid, pt in agreement with starting the partial program on discharge compliant with treatment , no reported side effects denied suicidal or homicidal ideations, no reported command hallucinations , Medical Problems: pt diagnosed with bipolar disorder since age 22, hx of about 5 involuntary hospitalizations due to manic episode, [place] and [facility] DSM 5 Symptoms Update: bipolar I disorder mixed severe Medication Change: Yes Medical Record Reviewed: Yes Mental Status Examination - Cognitive Function Orientation: Person, Place Memory: Intact Attention: WNL Concentration: Poor Association: WNL - Mood Mood: Depressed, Anxious - Affect Affect: Constricted, Depressed - Speech Speech: Appropriate - Formal Thought Process Formal Thought Process: Circumstantial Psychotic Thoughts and Behaviors: pt denied perceptual disturbances - Suicidal Ideation Suicidal Ideation: No - Homicidal Ideation Homicidal Ideation: No Goal/Treatment Plan - Goal/Treatment Plan Need for Continued Stay: Severe depression anxiety, Discharge may exacerbated symptoms Progress Toward Problem(s) and Goals/Treatment Plan: risperidone 2mg daily and 4mg qhs neurontin 200mg bid motivational and group therapy monitor for psychopharmacological effect and side effect profile Estimated Date of D/C: 11/16/17
[2017-11-15] MEDS: Risperidone M TAB 2 MG PO SCH (08:55)
[2017-11-15 11:32] VITALS: BP 127/66; PULSE 92; TEMP 97.3
--- NOTE | 2017-11-15 11:36 | PCM.PYCHDC ---
Mental Status Examination - Mental Status Examination Orientation: Person, Place, Situation Memory: Intact Mood: Neutral Affect: Broad Speech: Appropriate Attention: WNL Concentration: WNL Association: WNL Fund of Knowledge: WNL Formal Thought Process: No Impairment Description of patient's judgement and insight: fair insight , poor judgment Psychotic Thoughts and Behaviors: pt denied perceptual disturbances, non elicited Suicidal Ideation: No Current Homicidal Ideation?: No Discharge Summary - Discharge Note Reason for Hospitalization: pt is 32 ys old male with previous diagnosis of bipolar disorder, at least four previous inpatient hospitalizations for manic episodes. pt recently broke up with his girl friend became increasingly depressed, pt was non compliant with his medications, started to have poor sleep only two hours a day, pt also started using alcohol and cannabis, pt became increasingly manic for past few days since last monday, left the house and started wandering on the streets in [facility] pt started experiencing suicidal ideations and presented to ER seeking help on the unit pt presenting with severe anxiety, depressed mood with passive suicidal ideations, no active plan or intent on the unit, increased energy and irritability, pt denied homicidal ideations, denied command hallucinations Consultations:: List each consultation separately and include: 1. Reason for request. 2. Findings. 3. Follow-up Summary of Hospital Course include:: 1. Description of specific treatment plan utilized for patients during their course of treatmen. 2. Summarize the time- course for resolution of acute symptoms and/or regressed behaviors. 3. Describe issues identified and worked on during hospitalization. 4. Describe medication utilized. 5. Describe medical problems identified and treated. 6. Reassessment of suicide risk Summary of Hospital Course: pt on admission was paranoid , guarded, pt was started on risperidone, IT was uptitrated to 4mg qhs and 2mg daily, pt refused to be on lithium depakote or trileptal, reporting a previous allergic reaction with hives and rash, pt was started on neurontin motivational therapy was provided in reference to cannabis use and the effect of it on pt presenting mental status pt gradually presented with clearing off of the thought process, was compliant with treatment , no reported side effects of medications pt was offered to be started on risperidone consta to ensure compliance but he declined pt agreed to start [facility] program at [facility] on discharge mental status on discharge was stable, pt denied any current suicidal or homicidal ideations, denied command hallucinations or perceptual disturbances non elicited, presented with stable mood and affect - Diagnosis (1) Depression Current Visit: Yes Status: Acute - Final Diagnosis (DSM 5) Condition upon Discharge: STABLE DSM 5: Bipolar I disorder, MRE mixed severe with psychotic features cannabis induced psychotic disorder cannabis use disorder Disposition: HOME/ ROUTINE Follow-up Treatment Plan: risperidone 2mg daily and 4mg qhs neurontin 200mg bid motivational and group therapy monitor for psychopharmacological effect and side effect profile Prescriptions/Medication Reconciliation: Benztropine [Cogentin] 0.5 mg PO HS 30 Days #30 tab Gabapentin [Neurontin] 200 mg PO BID 30 Days #120 cap hydrOXYzine Pamoate [Vistaril] 25 mg PO TID PRN 30 Days #90 cap PRN Reason: Anxiety Nicotine 21 mg/24 hr [Nicoderm Cq] 1 patch TD DAILY 30 Days #30 patch risperiDONE [RisperDAL Tab] 2 mg PO DAILY 30 Days #30 tab risperiDONE [RisperDAL Tab] 4 mg PO HS 30 Days #30 tab - Smoking Cessation Smoking Cessation Medication prescribed: Yes - Antipsychotic Medications Pt discharged on 2 or more routine antipsychotic medications: No
== END 2017-11-15 12:56 | disposition home or self-care (01) | DRG 430 ==
LOC: H.ER 04:17 → H.ERHOLD 08:23 → H.PSYCH 12:57
PROVIDERS: ADMIT Psychiatry & Neurology Psychiatry; ATTEND Psychiatry & Neurology Psychiatry
PROC: GZ3ZZZZ Medication Management (ICD-10-PCS; principal; 2017-11-01)
PROC: GZHZZZZ Group Psychotherapy (ICD-10-PCS; 2017-11-01)
PROC: GZ56ZZZ Individual Psychotherapy, Supportive (ICD-10-PCS; 2017-11-01)
DX: F31.64 Bipolar disorder, current episode mixed, severe, with psychotic features (principal); F41.9 Anxiety disorder, unspecified; J45.909 Unspecified asthma, uncomplicated; F17.210 Nicotine dependence, cigarettes, uncomplicated; Z91.14 Patient's other noncompliance with medication regimen; Z79.899 Other long term (current) drug therapy; F12.159 Cannabis abuse with psychotic disorder, unspecified; R45.851 Suicidal ideations